=== PATIENT | male | born 1970 | race Caucasian/White ===

== ENCOUNTER 2019-01-05 18:26 | Emergency (ER) | payer SELFPAY ==
[~2019-01-05] VITALS: Ht 175.3 cm; Wt 74.0 kg
[~2019-01-05 18:26] MED LIST: ETOMIDATE 2MG/ML 10ML VIAL IV ONE; SUCCINYLCHOLINE CHLORIDE 200MG/10ML IV ONE
[2019-01-05] MEDS ORDERED: LABETALOL 5MG/ML SYR 20 MG/4 ML SYRINGE IV ONE ×2 (19:30→20:30)
[2019-01-05 19:37] LABS: HEMOGLOBIN. 16.3 g/dL (14.0-18.0); MEAN CORPUSCULAR HEMOGLOBIN 28.1 pg (28.0-32.0); MEAN CORPUSCULAR VOLUME 82.6 fL (80.0-94.0); MEAN PLATELET VOLUME 8.9 fl (7.4-10.4); PLATELET 271 x1000/uL (130-400); RED BLOOD CELL COUNT 5.81 mill/uL (4.7-6.1); RED CELL DISTRIBUTION WIDTH 13.7 % (11.6-14.6)
[2019-01-05 19:41] LABS: CHLORIDE 95 mEq/L (98-107)
[2019-01-05 19:45] LABS: ETHANOL BLOOD < 10 mg/dL
[2019-01-05 19:47] LABS: PROTHROMBIN TIME 10.4 sec (9.6-11.0)
[2019-01-05] MEDS ORDERED: MORPHINE SULFATE 4 MG/ML CPJ (NOT FOR IM USE) IV ONE (20:15)
[2019-01-05 20:26] LABS: PLATELET ESTIMATE NORMAL
[2019-01-05] MEDS ORDERED: NICARDIPINE 40MG/200ML PREMIX 200 ML IV ONE (20:40)
[2019-01-05] MEDS ORDERED: ETOMIDATE 2MG/ML 10ML VIAL IV ONE (21:30)
[2019-01-05] MEDS ORDERED: SUCCINYLCHOLINE CHLORIDE 200MG/10ML IV ONE (21:30)
[2019-01-05] MEDS ORDERED: PROPOFOL 200MG/20ML VIAL IV ONE (21:30)
[2019-01-05] MEDS ORDERED: PROPOFOL 10MG/ML 100ML 100 ML IV ONE (21:45)
[2019-01-05] MEDS ORDERED: SODIUM CHLORIDE 0.9% 1,000 ML IV ONE (21:51)
[2019-01-05] MEDS ORDERED: MANNITOL 12.5G (25%) VIAL 50ML IV ONE (22:00)
[2019-01-05 22:26] LABS: BG BASE EXCESS -0.7 mmol/L (-2.0-2.0); BG CARBOXYHEMOGLOBIN 0.2 % (0.5-1.5); BG DEOXYHEMOGLOBIN 1.4 % (0.0-5.0); BG FRACTION INSPIRED OXYGEN 500; BG HCO3 ACT 23.3 mmol/L (22.0-26.0); BG METHEMOGLOBIN 0.3 % (0.0-1.5); BG OXYGEN SATURATION 98.6 % (92.0-98.5); BG OXYHEMOGLOBIN 98.1 % (94.0-97.0); BG PCO2 36.8 mmHg (35.0-45.0); BG PH 7.419 (7.350-7.450); BG PO2 218.5 mmHg (75.0-100.0); BG SAMPLE SITE RIGHT FEMORAL; BG TIDAL VOLUME(mL) 600 mL; BG TOTAL HEMOGLOBIN 15.9 g/dL (12.0-18.0); BG VENT MODE VENT - A/C; BG VENT RATE 16 set
[2019-01-05 22:27] VITALS: BP 117/47
== END 2019-01-05 23:15 | disposition short-term general hospital (02) ==
LOC: ER 18:26
DX: I60.9 Nontraumatic subarachnoid hemorrhage, unspecified (principal); R41.82 Altered mental status, unspecified
CPT/HCPCS: 31500; 36415; 36600; 70450; 71045; 80053; 80320; 82140; 82375; 82805; 82962; 83690; 85025; 85610; 93005; 96374; 96375; 96376; 99291; J0330; J2150; J2270; J3490; J7030; Z7610; J2704; G0480